=== PATIENT | female | born 1995 | race Two or more races ===

== ENCOUNTER 2020-06-20 11:30 | Emergency (ER) | payer SELFPAY ==
[~2020-06-20] VITALS: Ht 165.1 cm; Wt 86.0 kg
[2020-06-20 11:35] VITALS: BP 134/74
--- NOTE | 2020-06-20 11:47 | PHYS DOC ---
Past Medical History Past Medical History: No Pertinent History Past Surgical History: No Surgical History Alcohol Use: None Drug Use: None General Adult EDM: Chief Complaint: ANKLE PROBLEM HPI: HPI: Patient is a 24 year old female with no significant medical history who presents to the ED today complaining of 8 out of 10 right lateral ankle pain that began last night after she fell down some steps. Patient denies any loss of consciousness. She states she rolled her ankle when she fell. Denies hitting her head on the ground. Describes the pain as sharp intermittent worse this morning. She states she has not taken anything for her pain. Review of Systems: Review of Systems: Constitutional: Denies fever or chills. [] Musculoskeletal: Reports right ankle pain Integument: Denies rash. [] Neurologic: Denies headache, focal weakness or sensory changes. [] Psychiatric: Denies depression or anxiety. [] Heart Score: Risk Factors: Risk Factors: DM, Current or recent (<one month) smoker, HTN, HLP, family history of CAD, obesity. Risk Scores: Score 0 - 3: 2.5% MACE over next 6 weeks - Discharge Home Score 4 - 6: 20.3% MACE over next 6 weeks - Admit for Clinical Observation Score 7 - 10: 72.7% MACE over next 6 weeks - Early Invasive Strategies Allergies: Allergies: Allergies Coded Allergies Type Severity Reaction Last Updated Verified No Known Drug Allergies 09/24/13 No Physical Exam: PE: Constitutional: Well developed, well nourished, no acute distress, non-toxic appearance. [] Skin: Warm, dry, no erythema, no rash. [] Back: No tenderness, no CVA tenderness. [] Extremities: Right ankle with mild soft tissue swelling, tenderness on palpation of the right lateral ankle. Full passive range of motion to the right ankle. Full range of motion to the right toes. +2 right pedal pulse. Cap refill less than 2 seconds the right toes. Neurologic: Alert and oriented X 3, normal motor function, normal sensory function, no focal deficits noted. [] Psychologic: Affect normal, judgement normal, mood normal. [] EKG: EKG: [] Radiology/Procedures: Radiology/Procedures: []PROCEDURE: ANKLE RIGHT 3V EXAMINATION: XR EXAM OF ANKLE_RIGHT 3VIEWS CLINICAL HISTORY: Right ankle pain, rolled ankle TECHNIQUE: XR EXAM OF ANKLE_RIGHT 3VIEWS Number of Images/Views: 3 COMPARISON: None FINDINGS: Joint spaces and alignment maintained. No acute fracture. Mild soft tissue swelling, greatest along the lateral ankle. IMPRESSION: No acute osseous abnormality right ankle. Electronically signed by: Reyes Herman DO (06/20/2020 12:04 PM) [facility] DICTATED and SIGNED BY: REYES HERMAN DO DATE: 06/20/20 [id number] 0 Course & Med Decision Making: Course & Med Decision Making Pertinent Labs and Imaging studies reviewed. (See chart for details) This is a 24-year-old female patient presented to the ED today with right ankle pain, she rolled her ankle last night. Right ankle x-rays interpreted by radiologist are negative for any acute findings. Aircast applied to the right ankle. Ice elevation encouraged. OTC pain relievers. Orthopedic doctor for follow-up provided. Dragon Disclaimer: Dragon Disclaimer: This electronic medical record was generated, in whole or in part, using a voice recognition dictation system. Departure Departure Impression: Primary Impression: Right ankle sprain Qualified Codes: S93.401A - Sprain of unspecified ligament of right ankle, initial encounter Disposition: 01 DC HOME SELF CARE/HOMELESS Condition: STABLE Referrals: NON,STAFF (PCP) REENA ROSADO MD follow up in one week Patient Instructions: Ankle Sprain Additional Instructions: You were evaluated in the emergency room for right ankle pain, your right ankle x-rays were negative for any acute findings. You likely have a right ankle sprain. Wear the Aircast provided as tolerated. Try to ice and elevate the extremity. Take [id number] pain relievers especially anti-inflammatories like ibuprofen as needed for pain. Follow-up with the provided orthopedic doctor in 1 week if symptoms persist YUVAL MATA APRN Jun 20, 2020 11:47
--- NOTE | 2020-06-20 12:07 | RAD ---
EXAMINATION: XR EXAM OF ANKLE_RIGHT 3VIEWS CLINICAL HISTORY: Right ankle pain, rolled ankle TECHNIQUE: XR EXAM OF ANKLE_RIGHT 3VIEWS Number of Images/Views: 3 COMPARISON: None FINDINGS: Joint spaces and alignment maintained. No acute fracture. Mild soft tissue swelling, greatest along t he lateral ankle. IMPRESSION: No acute osseous abnormality right ankle. Electronically signed by: Reyes Terrell DO (06/20/2020 12:04 PM) [facility]
== END 2020-06-20 12:20 | disposition home or self-care (01) ==
LOC: ER 11:30
DX: S93.491A Sprain of other ligament of right ankle, initial encounter (principal); R60.0 Localized edema; W10.8XXA Fall (on) (from) other stairs and steps, initial encounter; Y93.89 Activity, other specified; Y92.89 Other specified places as the place of occurrence of the external cause; Y99.8 Other external cause status
CPT/HCPCS: 73610; 99284; L4350